=== PATIENT | female | born 1975 | race Caucasian/White ===

== ENCOUNTER → 2016-10-13 | Outpatient (CLI) | payer MEDICARE, OTHER ==
--- NOTE | 2016-10-13 08:49 | MR ---
EXAMINATION TYPE: MR brain wo/w con DATE OF EXAM: 10/13/2016 8:35 AM COMPARISON: Prior MRI brain March 29, 2015 HISTORY: White matter changes per order. Symptoms of headaches, balance issues, and memory loss all p er patient. TECHNIQUE: Multiplanar, multisequence images of the brain and brainstem is performed without and with IV contras t, utilizing 15 mL intravenous MultiHance gadolinium contrast is administered intravenously. Demyeli nating disease protocol with additional Sagittal Flair sequence performed. FINDINGS: T2 Lesions Present : Yes Approximate Number of Lesions: Less than 5, no progression noted. Locations Identified : Some confluent periventricular involvement for example right frontal horn on a xial image 19 Size of Reference Lesion(s): No distinct focal lesions to accurately measure. Previously described tiny focal lesions not well see n on today's study. Small vague lesion right temporal lobe axial image 14 is felt stable for referenc e. Enhancing Lesion(s) Present: No Change from Prior: Stable Diffusion weighted images demonstrate no evidence of a recent infarct or other diffusion abnormality. There is no worrisome extra-axial fluid collection. There is persistent mild diffuse ventricular pr ominence felt stable without significant sulcal effacement. The brain volume is age appropriate. Midline structures demonstrate normal morphology. The craniocervical junction appears within normal limits. Post contrast images demonstrate no abnormal enhancement. The dural venous sinuses appear pa tent. The visualized sinuses are clear and the globes are intact. IMPRESSION: Mild hydrocephalus with nonspecific mild predominantly periventricular somewhat confluen t T2 hyperintense lesions favor product of transependymal flow of CSF, other etiologies not excluded. No new or enhancing lesions are evident.
== END | disposition home or self-care (01) ==
LOC: RADMRIMAIN 07:38
PROVIDERS: ATTEND Psychiatry & Neurology Neurology
DX: G91.9 Hydrocephalus, unspecified (principal)
CPT/HCPCS: 70553; A9577

== ENCOUNTER → 2016-12-10 | Outpatient (CLI) | payer MEDICARE, OTHER ==
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
== END | disposition home or self-care (01) ==
LOC: SLEEP 10:12
PROVIDERS: ATTEND Internal Medicine
DX: G47.33 Obstructive sleep apnea (adult) (pediatric) (principal); E66.3 Overweight; F32.9 Major depressive disorder, single episode, unspecified; F41.9 Anxiety disorder, unspecified; E03.9 Hypothyroidism, unspecified; G40.909 Epilepsy, unspecified, not intractable, without status epilepticus; H40.9 Unspecified glaucoma; K21.9 Gastro-esophageal reflux disease without esophagitis; Z91.040 Latex allergy status; Z98.890 Other specified postprocedural states; Z79.899 Other long term (current) drug therapy

== ENCOUNTER → 2017-04-12 | Outpatient (CLI) | payer MEDICARE ==
--- NOTE | 2017-04-13 08:25 | MM ---
Reason for exam: screening (asymptomatic). Last mammogram was performed 1 year and 4 months ago. History: Patient has history of other cancer at age 38. Family history of breast cancer in paternal aunt at age 40. Physical Findings: A clinical breast exam by your physician is recommended on an annual basis and results should be correlated with mammographic findings. MG Screening Mammo w CAD Bilateral CC and MLO view(s) were taken. Prior study comparison: December 11, 2015, bilateral MG 3d screening mammo w/cad. November 22, 2014, bilateral MG screening mammo w CAD. There are scattered fibroglandular densities. Benign calcifications in the left breast. There is no discrete abnormality. No significant changes when compared with prior studies. ASSESSMENT: Benign, BI-RAD 2 RECOMMENDATION: Routine screening mammogram of both breasts in 1 year.
== END | disposition home or self-care (01) ==
LOC: RADMAMWWP 07:56
PROVIDERS: ATTEND Obstetrics & Gynecology
DX: Z12.31 Encounter for screening mammogram for malignant neoplasm of breast (principal)

== ENCOUNTER → 2017-10-19 | Outpatient (CLI) | payer OTHER, MEDICARE ==
--- NOTE | 2017-10-19 11:07 | MR ---
EXAMINATION TYPE: MR brain wo/w con DATE OF EXAM: 10/19/2017 COMPARISON: Prior brain MRI October 13, 2016. HISTORY: MS progress study. TECHNIQUE: Multiplanar, multisequence images of the brain and brainstem is performed without and with IV contras t, utilizing 7 mL intravenous Gadavist gadolinium contrast is administered intravenously. Demyelinat ing disease protocol with additional Sagittal Flair sequence performed. FINDINGS: T2 Lesions Present : Yes Approximate Number of Lesions: Less than 5 Locations Identified : Periventricular confluent areas Size of Reference Lesion(s): Curvilinear confluent area right frontal horn stable near axial image 18 Enhancing Lesion(s) Present: No Change from Prior: Stable Diffusion weighted images demonstrate no evidence of a recent infarct or other diffusion abnormality. There is no worrisome extra-axial fluid collection. There is ventricular and sulcal prominence cons istent with mild diffuse cerebral atrophy somewhat pronounced for patient's age. Ventricle size is no t significantly changed from prior. Midline structures demonstrate normal morphology. The craniocervical junction appears within normal limits. Post contrast images demonstrate no abnormal enhancement. The dural venous sinuses appear pa tent. The visualized sinuses are clear and the globes are intact. IMPRESSION: Mild diffuse cerebral atrophy versus mild hydrocephalus not significantly changed from pr ior study. Confluent T2 periventricular lesion stable though nonspecific, not typical pattern of demy elinating disease. No new or enhancing lesions are seen.
== END | disposition home or self-care (01) ==
LOC: RADMRIMAIN 09:16
PROVIDERS: ATTEND Psychiatry & Neurology Neurology
DX: G93.89 Other specified disorders of brain (principal); Z91.040 Latex allergy status
CPT/HCPCS: 70553; A9581

== ENCOUNTER → 2017-12-02 | Outpatient (CLI) | payer MEDICARE ==
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
== END | disposition home or self-care (01) ==
LOC: SLEEP 13:05
PROVIDERS: ATTEND Internal Medicine
DX: G47.33 Obstructive sleep apnea (adult) (pediatric) (principal); F32.9 Major depressive disorder, single episode, unspecified; F41.9 Anxiety disorder, unspecified; E03.9 Hypothyroidism, unspecified; K21.9 Gastro-esophageal reflux disease without esophagitis; H40.9 Unspecified glaucoma; Z91.040 Latex allergy status; Z98.890 Other specified postprocedural states; Z79.899 Other long term (current) drug therapy; Z79.1 Long term (current) use of non-steroidal anti-inflammatories (NSAID); Z79.82 Long term (current) use of aspirin; Z86.69 Personal history of other diseases of the nervous system and sense organs; Z99.89 Dependence on other enabling machines and devices

== ENCOUNTER → 2018-01-10 | Outpatient (CLI) | payer MEDICARE ==
[2018-01-10 08:26] LABS: T4, Free (Free Thyroxine) 0.84 ng/dL (0.78-2.19)
== END | disposition home or self-care (01) ==
LOC: LABWHC1 07:19
PROVIDERS: ATTEND Internal Medicine Endocrinology, Diabetes & Metabolism
DX: E03.9 Hypothyroidism, unspecified (principal)
CPT/HCPCS: 36415; 84439; 84443

== ENCOUNTER → 2018-03-11 | Outpatient (CLI) | payer MEDICARE ==
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
== END | disposition home or self-care (01) ==
LOC: RADBDWWP 07:48
PROVIDERS: ATTEND Family Medicine
DX: M85.851 Other specified disorders of bone density and structure, right thigh (principal); E55.9 Vitamin D deficiency, unspecified
CPT/HCPCS: 77080

== ENCOUNTER → 2018-04-07 | Outpatient (CLI) | payer OTHER, MEDICARE ==
--- NOTE | 2018-04-07 12:01 | MR ---
EXAMINATION TYPE: MR lumbar spine wo/w con DATE OF EXAM: 04/07/2018 COMPARISON: Prior MRI lumbar spine December 31, 2015 HISTORY: Low back pain per order, pain for over a year into left thigh and buttocks per patient. TECHNIQUE: Multiplanar, multisequence images of the lumbar spine is performed without and with IV contrast, util izing 7.5 mL intravenous Gadavist FINDINGS: Sagittal images of the lumbar spine show vertebral body heights and alignment to appear sat isfactory. 6 mild disc desiccation L2-L3 and L4-L5 levels is redemonstrated otherwise the interverteb ral discs demonstrate normal heights and hydration. No new suspicious posterior disc herniations are seen on sagittal images. Small posterior disc herniation L1-L2 level is redemonstrated effacing anter ior thecal sac. The conus medullaris is stable in position ending at superior L2 level. No abnormal s ignal is present. No suspicious clumping of lumbosacral nerve roots is noted. The bone marrow signal intensity is within normal limits. No suspicious postcontrast enhancement is seen. No significant spu rring is noted. Axial images show the T12-L1 level to remain within normal limits. Axial images at the L1-L2 level show more prominent moderate broad disc bulge with central disc protr usion effacing anterior thecal sac on axial images 23 and 22, bilateral neural foramina remain patent . Axial images at L2-L3 level show mild broad disc bulge and mild facet degenerative changes bilaterall y. There is minimal effacement anterior thecal sac. Bilateral neural foramina are patent. No signific ant change from prior. Axial images at the L3-L4 level show mild to moderate right greater than left facet arthropathy bilat erally. No disc herniation is seen. Spinal canal is maintained. Bilateral neural foramina are patent. No significant change from prior. Axial images at the L4-L5 level show moderate right greater than left facet degenerative changes liga mentum flavum hypertrophy bilaterally. There is some effacement of the posterior lateral thecal sac. There is persistent mild broad disc bulge with left foraminal disc protrusion component. Increased si gnal in this component consistent with annular tear is redemonstrated. Right-sided neural foramen is patent. Left side is patent as disc herniation is inferior to the foramina. No significant change fro m prior. Axial images at the L5-S1 level redemonstrate mild facet degenerative changes bilaterally. Spinal can al is preserved. Bilateral neural foramina are patent. No suspicious retroperitoneal findings are seen. Paraspinal muscle bulk is maintained. IMPRESSION: Multilevel degenerative changes in lumbar spine as detailed above, findings at L4-L5 leve l felt stable from prior. More prominent disc herniation L1-L2 level is noted on current study.
== END | disposition home or self-care (01) ==
LOC: RADMRIMAIN 09:39
PROVIDERS: ATTEND Psychiatry & Neurology Neurology
DX: M47.817 Spondylosis without myelopathy or radiculopathy, lumbosacral region (principal); M51.26 Other intervertebral disc displacement, lumbar region; Z91.040 Latex allergy status
CPT/HCPCS: 72158; A9581

== ENCOUNTER → 2018-05-23 | Outpatient (CLI) | payer MEDICARE ==
--- NOTE | 2018-05-23 12:02 | MM ---
Reason for exam: screening (asymptomatic). Last mammogram was performed 1 year and 1 month ago. History: Patient has history of other cancer at age 38. Family history of breast cancer in paternal aunt at age 40. Physical Findings: A clinical breast exam by your physician is recommended on an annual basis and results should be correlated with mammographic findings. MG 3D Screening Mammo W/Cad Bilateral CC, MLO, and XCCL view(s) were taken. Prior study comparison: April 12, 2017, bilateral MG screening mammo w CAD. December 11, 2015, bilateral MG 3d screening mammo w/cad. The breast tissue is heterogeneously dense. This may lower the sensitivity of mammography. There are benign appearing round calcifications in the left breast. There is no discrete abnormality. ASSESSMENT: Benign, BI-RAD 2 RECOMMENDATION: Routine screening mammogram of both breasts in 1 year.
== END | disposition home or self-care (01) ==
LOC: RADMAMWWP 08:54
PROVIDERS: ATTEND Family Medicine
DX: Z12.31 Encounter for screening mammogram for malignant neoplasm of breast (principal)
CPT/HCPCS: 77063; 77067

== ENCOUNTER → 2019-01-04 | Outpatient (CLI) | payer MEDICARE ==
[2019-01-04 09:05] LABS: Basophils % (A) 1 %; Eosinophils # (A) 0.1 k/uL (0-0.7); Eosinophils % (A) 2 %; HCT 37.1 % (34.0-46.0); Lymphocytes # (A) 1.9 k/uL (1.0-4.8); Lymphocytes % (A) 43 %; MCHC 32.5 g/dL (31.0-37.0); MCV 95.6 fL (80.0-100.0); Monocytes # (A) 0.3 k/uL (0-1.0); Monocytes % (A) 7 %; Neutrophils % (A) 45 %; Platelet Count 284 k/uL (150-450); RBC 3.88 m/uL (3.80-5.40); RDW 12.8 % (11.5-15.5); WBC 4.4 k/uL (3.8-10.6)
[2019-01-04 15:58] LABS: Albumin 4.1 g/dL (3.80-4.90); Albumin/Globulin Ratio 1.95 (1.60-3.17); Anion Gap 8.9 mmol/L (4.00-12.00); Calcium 9.1 mg/dL (8.7-10.3); Carbon Dioxide 24.1 mmol/L (21.6-31.8); Globulin 2.1 g/dL (1.6-3.3); Potassium 3.9 mmol/L (3.5-5.5); Total Bilirubin 0.2 mg/dL (0.3-1.2); Total Protein 6.2 g/dL (6.2-8.2)
[2019-01-05 16:43] LABS: Carbamazepine (Tegretol) 8.4 ug/mL (4.0-12.0)
== END | disposition home or self-care (01) ==
LOC: LABWHC1 07:53
PROVIDERS: ATTEND Nurse Practitioner Acute Care
DX: E55.9 Vitamin D deficiency, unspecified (principal); R56.9 Unspecified convulsions; Z51.81 Encounter for therapeutic drug level monitoring
CPT/HCPCS: 36415; 80053; 80156; 80164; 80177; 82306; 85025

== ENCOUNTER → 2019-01-19 | Outpatient (CLI) | payer MEDICARE ==
--- NOTE | 2019-01-19 11:28 | US ---
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 On thyroid meds. GLAND SIZE: Right Lobe: 4.0 x 1.7 x 1.8 cm Overall Parenchyma: homogenous Left Lobe: 4.3 x 1.6 x 1.3 cm Overall Parenchyma: homogeneous Isthmus Thickness: 0.3 cm NODULES RIGHT: # of nodules measured on right: 0 LEFT: # of nodules measured on left: 0 ISTHMUS: # of nodules measured in the isthmus: 0 Bilateral neck scanned, no evidence of lymphadenopathy. IMPRESSION: Homogeneous thyroid gland without focal nodularity as seen on the prior of 2012.
== END | disposition home or self-care (01) ==
LOC: RADUSWWP 10:05
PROVIDERS: ATTEND Internal Medicine Endocrinology, Diabetes & Metabolism
DX: E04.2 Nontoxic multinodular goiter (principal)
CPT/HCPCS: 76536

== ENCOUNTER → 2019-02-16 | Outpatient (CLI) | payer OTHER, MEDICARE ==
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
== END | disposition home or self-care (01) ==
LOC: SLEEP 10:11
PROVIDERS: ATTEND Internal Medicine
DX: G47.33 Obstructive sleep apnea (adult) (pediatric) (principal); F32.9 Major depressive disorder, single episode, unspecified; F41.9 Anxiety disorder, unspecified; R56.9 Unspecified convulsions; E03.9 Hypothyroidism, unspecified; K21.9 Gastro-esophageal reflux disease without esophagitis; H40.9 Unspecified glaucoma; Z98.890 Other specified postprocedural states; Z99.89 Dependence on other enabling machines and devices; Z91.040 Latex allergy status; Z79.899 Other long term (current) drug therapy

== ENCOUNTER → 2019-05-26 | Outpatient (CLI) | payer MEDICARE ==
--- NOTE | 2019-05-30 08:12 | MM ---
Reason for exam: screening (asymptomatic). Last mammogram was performed 1 year ago. History: Patient is postmenopausal and has history of other cancer at age 38. Family history of breast cancer in paternal aunt at age 40. Physical Findings: A clinical breast exam by your physician is recommended on an annual basis and results should be correlated with mammographic findings. MG 3D Screening Mammo W/Cad Bilateral CC and MLO view(s) were taken. Prior study comparison: May 23, 2018, bilateral MG 3d screening mammo w/cad. April 12, 2017, bilateral MG screening mammo w CAD. There are scattered fibroglandular densities. No significant changes when compared with prior studies. ASSESSMENT: Negative, BI-RAD 1 RECOMMENDATION: Routine screening mammogram of both breasts in 1 year.
== END | disposition home or self-care (01) ==
LOC: RADMAMWWP 06:52
PROVIDERS: ATTEND Obstetrics & Gynecology
DX: Z12.31 Encounter for screening mammogram for malignant neoplasm of breast (principal)
CPT/HCPCS: 77063; 77067

== ENCOUNTER → 2019-07-13 | Outpatient (CLI) | payer MEDICARE ==
--- NOTE | 2019-07-13 12:02 | XR ---
EXAMINATION TYPE: XR chest 2V DATE OF EXAM: 07/13/2019 COMPARISON: 07/14/2018 TECHNIQUE: PA and lateral views submitted. HISTORY: Melanoma FINDINGS: The lungs are clear and there is no pneumothorax, pleural effusion, or focal pneumonia. No overt fa ilure. IMPRESSION: 1. No acute process.
== END | disposition home or self-care (01) ==
LOC: RADXRMAIN 11:41
PROVIDERS: ATTEND Internal Medicine Hematology & Oncology
DX: C43.59 Malignant melanoma of other part of trunk (principal); R51 Headache; G40.319 Generalized idiopathic epilepsy and epileptic syndromes, intractable, without status epilepticus; E07.9 Disorder of thyroid, unspecified
CPT/HCPCS: 71046

== ENCOUNTER → 2020-05-15 | Outpatient (CLI) | payer MEDICARE | END | disposition home or self-care (01) | LOC: LABWHC1 08:38 | PROVIDERS: ATTEND Internal Medicine Endocrinology, Diabetes & Metabolism | DX: E03.9 Hypothyroidism, unspecified (principal) | CPT/HCPCS: 36415; 84439; 84443 ==

== ENCOUNTER → 2020-08-01 | Outpatient (CLI) | payer MEDICARE ==
--- NOTE | 2020-08-02 09:51 | MM ---
Reason for exam: screening (asymptomatic). Last mammogram was performed 1 year and 2 months ago. History: Patient is postmenopausal and has history of other cancer at age 38. Family history of breast cancer in paternal aunt at age 40. Physical Findings: A clinical breast exam by your physician is recommended on an annual basis and results should be correlated with mammographic findings. MG 3D Screening Mammo W/Cad Bilateral CC and MLO view(s) were taken. Prior study comparison: May 26, 2019, bilateral MG 3d screening mammo w/cad. May 23, 2018, bilateral MG 3d screening mammo w/cad. The breast tissue is heterogeneously dense. This may lower the sensitivity of mammography. There are benign appearing round calcifications bilaterally. There is no discrete abnormality. ASSESSMENT: Benign, BI-RAD 2 RECOMMENDATION: Routine screening mammogram of both breasts in 1 year.
== END | disposition home or self-care (01) ==
LOC: RADMAMWWP 11:00
PROVIDERS: ATTEND Family Medicine
DX: Z12.31 Encounter for screening mammogram for malignant neoplasm of breast (principal)
CPT/HCPCS: 77063; 77067

== ENCOUNTER → 2020-09-12 | Outpatient (CLI) | payer OTHER ==
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
== END | disposition home or self-care (01) ==
LOC: SLEEP 09:51
PROVIDERS: ATTEND Internal Medicine
DX: G47.33 Obstructive sleep apnea (adult) (pediatric) (principal); H54.62 Unqualified visual loss, left eye, normal vision right eye; E03.9 Hypothyroidism, unspecified; H40.9 Unspecified glaucoma; K21.9 Gastro-esophageal reflux disease without esophagitis; Z86.59 Personal history of other mental and behavioral disorders; Z91.040 Latex allergy status; Z98.890 Other specified postprocedural states; Z79.82 Long term (current) use of aspirin; Z79.899 Other long term (current) drug therapy; Z79.890 Hormone replacement therapy; Z99.89 Dependence on other enabling machines and devices

== ENCOUNTER → 2021-06-17 | Outpatient (CLI) | payer MEDICARE ==
--- NOTE | 2021-06-17 13:39 | US ---
EXAMINATION TYPE: US thyroid st tissue head/neck DATE OF EXAM: 06/17/2021 COMPARISON: NONE CLINICAL HISTORY: 46-year-old female E03.8 HYPOTHYROIDISM. TECHNIQUE: Multiple sonographic images of the thyroid gland are obtained. FINDINGS: GLAND SIZE: Right Lobe: 4.1 x 2.1 x 1.8 cm Overall Parenchyma: homogenous Left Lobe: 4.5 x 1.7 x 1.4 cm Overall Parenchyma: homogeneous Isthmus Thickness: 0.4 cm NODULES RIGHT: # of nodules measured on right: 0 LEFT: # of nodules measured on left: 0 ISTHMUS: # of nodules measured in the isthmus: 0 Bilateral neck scanned, no evidence of lymphadenopathy. IMPRESSION: No discrete nodules. Gland measurements within the normal range.
== END | disposition home or self-care (01) ==
LOC: RADUSWWP 09:42
PROVIDERS: ATTEND Internal Medicine Endocrinology, Diabetes & Metabolism
DX: E03.9 Hypothyroidism, unspecified (principal)
CPT/HCPCS: 76536

== ENCOUNTER → 2021-08-28 | Outpatient (CLI) | payer MEDICARE ==
--- NOTE | 2021-08-28 10:30 | XR ---
EXAMINATION TYPE: XR chest 2V DATE OF EXAM: 08/28/2021 COMPARISON: NONE TECHNIQUE: PA and lateral views submitted. HISTORY: Melanoma FINDINGS: The lungs are clear and there is no pneumothorax, pleural effusion, or focal pneumonia. Heart size normal. No overt failure. Chronic appearing deformity of the left clavicle. IMPRESSION: 1. No acute process.
== END | disposition home or self-care (01) ==
LOC: RADXRMAIN 10:02
PROVIDERS: ATTEND Internal Medicine Hematology & Oncology
DX: C43.59 Malignant melanoma of other part of trunk (principal); G40.319 Generalized idiopathic epilepsy and epileptic syndromes, intractable, without status epilepticus; E07.9 Disorder of thyroid, unspecified; E78.5 Hyperlipidemia, unspecified
CPT/HCPCS: 71046

== ENCOUNTER → 2021-10-23 | Outpatient (CLI) | payer OTHER ==
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
== END ==
LOC: SLEEP 10:23
PROVIDERS: ATTEND Internal Medicine
DX: G47.33 Obstructive sleep apnea (adult) (pediatric) (principal); F32.A Depression, unspecified; F41.9 Anxiety disorder, unspecified; G40.909 Epilepsy, unspecified, not intractable, without status epilepticus; E03.9 Hypothyroidism, unspecified; K21.9 Gastro-esophageal reflux disease without esophagitis; H40.9 Unspecified glaucoma; H54.8 Legal blindness, as defined in USA; Z98.890 Other specified postprocedural states; Z87.828 Personal history of other (healed) physical injury and trauma; Z91.040 Latex allergy status; Z91.030 Bee allergy status

== ENCOUNTER → 2021-11-03 | Outpatient (CLI) | payer MEDICARE ==
[2021-11-03 15:00] LABS: T4, Free (Free Thyroxine) 1.1 ng/dL (0.800-1.800)
== END | disposition home or self-care (01) ==
LOC: LABWHC1 09:53
PROVIDERS: ATTEND Internal Medicine Endocrinology, Diabetes & Metabolism
DX: E03.8 Other specified hypothyroidism (principal)
CPT/HCPCS: 36415; 84439; 84443

== ENCOUNTER → 2021-12-19 | Outpatient (CLI) | payer MEDICARE ==
--- NOTE | 2021-12-22 11:24 | MM ---
Reason for exam: screening (asymptomatic). Last mammogram was performed 1 year and 5 months ago. History: Patient is postmenopausal and has history of other cancer at age 38. Family history of breast cancer in paternal aunt at age 40. Physical Findings: A clinical breast exam by your physician is recommended on an annual basis and results should be correlated with mammographic findings. MG 3D Screening Mammo W/Cad Bilateral CC and MLO view(s) were taken. Prior study comparison: August 01, 2020, bilateral MG 3d screening mammo w/cad. May 26, 2019, bilateral MG 3d screening mammo w/cad. The breast tissue is heterogeneously dense. This may lower the sensitivity of mammography. No significant changes when compared with prior studies. ASSESSMENT: Benign, BI-RAD 2 RECOMMENDATION: Routine screening mammogram of both breasts in 1 year.
== END | disposition home or self-care (01) ==
LOC: RADMAMWWP 14:31
PROVIDERS: ATTEND Family Medicine
DX: Z12.31 Encounter for screening mammogram for malignant neoplasm of breast (principal); Z78.0 Asymptomatic menopausal state; Z80.3 Family history of malignant neoplasm of breast
CPT/HCPCS: 77063; 77067

== ENCOUNTER → 2022-06-16 | Outpatient (CLI) | payer MEDICARE ==
--- NOTE | 2022-06-16 10:43 | CT ---
EXAMINATION TYPE: CT shoulder RT wo con DATE OF EXAM: 06/16/2022 COMPARISON: Plain film not submitted. HISTORY: UNSP DISP FX OF SURGICAL NECK CT DLP: 293.00 mGycm Automated exposure control for dose reduction was used. Helical imaging through the shoulder. Three-d imensional reconstructions. FINDINGS: Minimally displaced comminuted intra-articular humeral head fracture is present. No evident dislocati on. Some probable atelectatic changes present within the right lung. IMPRESSION: PROXIMAL RIGHT HUMERAL FRACTURE.
== END | disposition home or self-care (01) ==
LOC: RADCTMAIN 08:21
PROVIDERS: ATTEND Orthopaedic Surgery
DX: S42.211A Unspecified displaced fracture of surgical neck of right humerus, initial encounter for closed fracture (principal)

== ENCOUNTER → 2022-06-30 | Outpatient (CLI) | payer MEDICARE | END | disposition home or self-care (01) | LOC: LABWHC1 10:52 | PROVIDERS: ATTEND Internal Medicine Endocrinology, Diabetes & Metabolism | DX: E03.8 Other specified hypothyroidism (principal) | CPT/HCPCS: 36415; 84436; 84443 ==

== ENCOUNTER → 2022-09-04 | Outpatient (CLI) | payer MEDICARE ==
--- NOTE | 2022-09-04 12:17 | XR ---
EXAMINATION TYPE: XR chest 2V DATE OF EXAM: 09/04/2022 12:04 PM COMPARISON: Chest radiographs from 08/28/2021, CT right shoulder 06/16/2022 TECHNIQUE: XR chest 2V Frontal and lateral views of the chest. CLINICAL INDICATION:Female, 47 years old with history of C43.59, G40.319, E07.9, E78.5; FINDINGS: Lungs/Pleura: There is no evidence of pleural effusion, focal consolidation, or pneumothorax. Right perihilar linear scarring and/or atelectasis. Similar elevation of the right hemidiaphragm. Pulmonary vascularity: Unremarkable. Heart/mediastinum: Cardiomediastinal silhouette is unremarkable. Musculoskeletal: No acute osseous pathology. Remote right proximal humerus fracture. Chronic deformit y of the left clavicle. IMPRESSION: Right perihilar linear scarring and/or atelectasis. Otherwise no acute process.
--- NOTE | 2022-09-04 13:26 | MR ---
EXAMINATION TYPE: MR brain wo/w con DATE OF EXAM: 09/04/2022 COMPARISON: MR brain 10/19/2018, 10/13/2016, 03/29/2015 HISTORY: Memory loss, fall, hx melanoma. TECHNIQUE: Multiplanar, multisequence images of the brain and brainstem is performed without and with IV contras t, utilizing 6.5 mL intravenous Gadavist . FINDINGS: Diffusion weighted images demonstrate no evidence of a recent infarct or other diffusion ab normality. There is no extra-axial fluid collection. Mild stable cerebral atrophy. Unchanged T2/FLAI R hyperintense periventricular confluent white matter changes. Most prominent along the right frontal horn. The ventricular system and cisternal spaces is stable and prominent in size and appearance lik yael related to cerebral atrophy. The brain volume is age appropriate. Midline structures demonstrate normal morphology. The craniocervical junction appears within normal limits. Post contrast images demonstrate no abnormal enhancement. The dural venous sinuses appear pa tent. The globes are intact. Remote injury to the left maxillary sinus. IMPRESSION: 1. No evidence of acute ischemia. No abnormal enhancement identified. 2. Confluent T2 periventricular white matter changes likely related to chronic microangiopathy.
== END | disposition home or self-care (01) ==
LOC: RADMRIMAIN 11:36
PROVIDERS: ATTEND Internal Medicine Hematology & Oncology
DX: C43.59 Malignant melanoma of other part of trunk (principal); R90.82 White matter disease, unspecified; J98.4 Other disorders of lung; E07.9 Disorder of thyroid, unspecified; E78.5 Hyperlipidemia, unspecified; G40.319 Generalized idiopathic epilepsy and epileptic syndromes, intractable, without status epilepticus; Z91.81 History of falling
CPT/HCPCS: 71046; 70553; A9585

== ENCOUNTER → 2022-11-24 | Outpatient (CLI) | payer MEDICARE ==
--- NOTE | 2022-11-24 11:53 | MR ---
EXAMINATION TYPE: MR shoulder RT wo con DATE OF EXAM: 11/24/2022 COMPARISON: Outside right shoulder x-ray 2 weeks ago and older studies. HISTORY: RT SHOULDER PAIN WITH MOVEMENT TECHNIQUE: Multiplanar, multisequence imaging of the right shoulder is performed without contrast. FINDINGS: Rotator Cuff: Increased signal in the supraspinatus and infraspinatus tendons with more prominent sig nal and partial tearing of the articular surface of the infraspinatus tendon sagittal image 7 and cor onal image 17. . Subscapularis tendon is intact. Rotator cuff muscle bulk is preserved. Acromioclavicular Joint: Mild capsular hypertrophy. No significant spurring. No significant narrowing . Type II downsloping acromion. Glenohumeral Joint: There is narrowing seen. No significant spurring. Small effusion. Labrum: The labrum appears grossly intact given limitation of non-arthrogram study. Biceps Tendon: The long head of biceps is in normal location within bicipital groove. Some thickening and subtle increased signal intracapsular portion Bone marrow signal: Marked irregularity humeral head and proximal metaphysis with heterogeneous dimin ished T1 and increased T2 signal consistent with healing/healed comminuted fracture. Fracture extends to the superior medial humeral head along with the greater tuberosity. Some residual impaction along with minimal medial displacement of distal fracture fragment is redemonstrated. Findings correlate w ith CT June 16, 2022. Other: No additional significant abnormality is appreciated. IMPRESSION: 1. Late subacute or chronic comminuted fracture through surgical neck of right proximal humerus as de tailed above. Alignment fairly stable from prior CT. 2. There is glenohumeral joint narrowing. There is tendinosis of the onset of biceps tendon near labr al anchor. There is tendinosis of supraspinatus and infraspinatus tendons and partial tearing of the infraspinatus tendon at the articular surface.
== END | disposition home or self-care (01) ==
LOC: RADMRIMAIN 11:03
PROVIDERS: ATTEND Orthopaedic Surgery
DX: S42.211A Unspecified displaced fracture of surgical neck of right humerus, initial encounter for closed fracture (principal); M67.813 Other specified disorders of tendon, right shoulder; M75.111 Incomplete rotator cuff tear or rupture of right shoulder, not specified as traumatic

== ENCOUNTER → 2022-12-31 | Outpatient (CLI) | payer MEDICARE ==
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
== END ==
LOC: SLEEP 10:15
PROVIDERS: ATTEND Internal Medicine
DX: G47.33 Obstructive sleep apnea (adult) (pediatric) (principal); E03.9 Hypothyroidism, unspecified; F32.A Depression, unspecified; F41.9 Anxiety disorder, unspecified; H40.9 Unspecified glaucoma; H54.62 Unqualified visual loss, left eye, normal vision right eye; K21.9 Gastro-esophageal reflux disease without esophagitis; Z79.899 Other long term (current) drug therapy; Z98.890 Other specified postprocedural states; Z99.89 Dependence on other enabling machines and devices; Z79.890 Hormone replacement therapy; Z79.82 Long term (current) use of aspirin; Z91.040 Latex allergy status; Z91.02 Food additives allergy status
CPT/HCPCS: 99212

== ENCOUNTER → 2023-01-06 | Outpatient (CLI) | payer MEDICARE ==
[~2023-01-06] MED LIST: REGADENOSON 0.4 MG/5 ML SYRINGE IV PRN
--- NOTE | 2023-01-06 12:49 | NM ---
EXAMINATION TYPE: NM stress lexiscan cardiolite DATE OF EXAM: 01/06/2023 COMPARISON: NONE CLINICAL INDICATION: Female, 47 years old with history of R94.31, I67.9, G40.909, R41.3; TECHNIQUE: After the intravenous administration of 10.3 mCi Tc 99m Sestamibi - Cardiolite resting SP ECT images acquired 45 minutes post injection. The patient received 0.4mg Lexiscan, 24.6 mCi Tc 99m Sestamibi - Stress images obtained [address] injection FINDINGS: Review of stress and rest SPECT images demonstrates no distinct perfusion abnormality. Gated analysi s shows normal wall motion with an estimated left ventricular ejection fraction of 66 %. IMPRESSION: No scintigraphic evidence for reversible ischemia.
--- NOTE | 2023-01-06 13:15 | CA ---
Lexiscan Nuclear Stress Test Report Name: Ivory Louis Exam Date: 01/06/2023 11:11 Exam Location: [place] Stress Ht (in): 64 Wt (lb): 165 BSA: 1.80 Ordering Phys: Donna Davis MD Referring Phys: Ryan,, Technologist: SAUNDRA,, Age: 47 Gender: F : 1975 Procedure CPT: Indications: R94.31, I67.9, G40.909, R41.3 ICD-10 Codes: Patient History: ASCAD Medications: Meds past 24 hrs: Pretest Chest Pain: STRESS TEST Lexiscan Protocol Exercise Duration (min:sec): 02:[address] Depressions (mm): Angina Score: Mehta Score: Resting HR (bpm): 55 Peak HR (bpm): 86 Resting BP (mmHg): 141 / 79 Peak BP (mmHg): 129 / 78 MPHR: 171 Target HR: 145 % MPHR: 50 METS: 1.0 Total Dose: Peak Dose: Atropine: Double Product: 71258 BP Response: Stress Termination: Infusion complete Stress Symptoms: No chest pain or symptoms Stress Summary: ECG ANALYSIS Resting ECG: Stress ECG: CONCLUSIONS At baseline EKG showed normal sinus rhythm, normal axis, minimal 0.[address] depressions in the inferolateral leads. Patient recieved IV infusion of Lexiscan 0.4mg and at peak infusion EKG showed no significant change from baseline. Conclusions: 1. Nonspecific stress EKG portion second baseline EKG abnormalities 2. Nuclear imaging to be reported separately. Dr. Santos Harman DO (Electronically Signed) Final Date: 06 Jan 2023 13:14
== END | disposition home or self-care (01) ==
LOC: RADNMMAIN 08:44
PROVIDERS: ATTEND Family Medicine
DX: R94.31 Abnormal electrocardiogram [ECG] [EKG] (principal); I67.9 Cerebrovascular disease, unspecified; G40.909 Epilepsy, unspecified, not intractable, without status epilepticus; R41.3 Other amnesia
CPT/HCPCS: 93017; 78452; A9500; J2785

== ENCOUNTER 2023-01-20 07:28 | Day surgery (SDC) | payer MEDICARE ==
[2023-01-14 15:08] VITALS: BMI 30.9
--- NOTE | 2023-01-19 15:41 | HP ---
HISTORY AND PHYSICAL DATE OF SURGERY: 01/20/2023. HISTORY OF PRESENT ILLNESS: Ivory Louis is a 47-year-old patient seen with progressive right shoulder pain. We discussed options for treatment. She had post right shoulder arthroscopy. Consent regarding the procedure was obtained. PAST MEDICAL HISTORY: Hypothyroidism, hyperlipidemia, gastroesophageal reflux disease. PAST SURGICAL HISTORY: Noncontributory. MEDICATIONS: Atorvastatin, levothyroxine, Lexapro, meloxicam, multivitamin, pantoprazole. ALLERGIES: Latex. SOCIAL HISTORY: She denies tobacco use. PHYSICAL EVALUATION OF THE RIGHT SHOULDER: Flexion is 100 degrees, abduction is 80 degrees, external rotation is 50 degrees with some pain and weakness. Tenderness along the anterolateral acromion and rotator cuff insertion site. Impingement positive at 90 degrees. Cross-body adduction sign is positive. Drop-arm sign is positive. Distal neurovascular exam is intact. RADIOGRAPHS: Right shoulder radiographs revealed a previous well-healed humeral head fracture. MRI of right shoulder revealed a partial rotator cuff tear along with a previous well- healed humeral head fracture. IMPRESSION: 1. Right shoulder impingement with partial rotator cuff tear. 2. History of right shoulder humeral head fracture. 3. Hypothyroidism. 4. Hyperlipidemia. PLAN: Right shoulder arthroscopy with subacromial decompression, arthroscopic rotator cuff repair and debridement. MMODL / IJN: [id number] /
[2023-01-20] MEDS ORDERED: LACTATED RINGERS 1,000 ML IV SCH (07:47)
[2023-01-20] MEDS ORDERED: HYDROmorphone 0.5 MG/0.5 ML SYRINGE IVP PRN (07:47)
[2023-01-20] MEDS ORDERED: ONDANSETRON 4 MG/2 ML VIAL IVP ONE (07:47)
[2023-01-20] MEDS ORDERED: DEXAMETHASONE SOD PHOSPHATE 4 MG/ML 1 ML VIAL IV ONE (07:47)
[2023-01-20 08:19] VITALS: TEMP 97.2
[2023-01-20] MEDS ORDERED: MIDAZOLAM 2 MG/2 ML VIAL IVP ONE (08:53)
[2023-01-20] MEDS ORDERED: GLYCOPYRROLATE 0.2 MG/ML 2 ML VIAL IVP ONE (09:09)
[2023-01-20] MEDS ORDERED: SODIUM CHLORIDE 0.9% (PF) 10 ML VIAL ONE (09:24)
[2023-01-20] MEDS ORDERED: ROPIVACAINE 5 MG/ML 30 ML VIAL ONE (09:24)
[2023-01-20] MEDS ORDERED: ETOMIDATE 2 MG/ML 10 ML VIAL ONE (09:24)
[2023-01-20] MEDS ORDERED: SUCCINYLCHOLINE CHLORIDE 200 MG/10 ML VIAL IV ONE (09:24)
[2023-01-20] MEDS ORDERED: fentaNYL (PF) 50 MCG/ML 2 ML AMP ONE (09:24)
[2023-01-20] MEDS ORDERED: LIDOCAINE 2% INJ 20 MG/ML (2 ML VIAL) ONE (09:24)
[2023-01-20] MEDS ORDERED: DEXAMETHASONE SOD PHOSPHATE 4 MG/ML 1 ML VIAL ONE (09:24)
--- NOTE | 2023-01-20 10:54 | P.OP ---
Date of Procedure: 01/20/23 Preoperative Diagnosis: Right shoulder impingement Postoperative Diagnosis: 1. Right shoulder rotator cuff tear 2. Right shoulder impingement 3. Right shoulder acromioclavicular joint osteoarthritis 4. Right shoulder partial long head biceps tendon tear Procedure(s) Performed: 1. Right shoulder arthroscopic rotator cuff repair 2. Right shoulder arthroscopic subacromial decompression 3. Right shoulder arthroscopic Alena procedure 4. Right shoulder arthroscopic biceps tenotomy Implants: 1Arthrex 5.5 swivel lock anchor Anesthesia: GETA, regional (Interscalene block) Surgeon: Montrell Lazaro Director Of Hospitality #1: Abel Johansen Estimated Blood Loss (ml): 10 Pathology: none sent Condition: stable Disposition: PACU Indications for Procedure: 47-year-old patient seen with progressive right shoulder pain. After having treatment options discussed, she elected to proceed with arthroscopy. Operative Findings: See description of procedure Description of Procedure: Patient underwent an interscalene block by department of anesthesia. The patient was then taken to the operative suite. The patient underwent a general anesthetic by the department of anesthesia. The patient was placed into a lateral position and secured. There was appropriate padding of the bony prominence. Right shoulder was then prepped and draped in normal sterile orthopedic fashion. We placed the extremity in 10 pounds of longitudinal traction. A posterior incision was now made for a posterior working portal site. The trocar and cannula were inserted into the glenohumeral joint. Arthroscopy was initiated. Spinal needle was now inserted anteriorly, to ascertain the anterior working portal site. An incision was now made in that area, a trocar was inserted followed by a probe. There was some partial tearing and hyperemia involving the long head biceps tendon. There was some superficial fraying of the superior labrum. There was no significant chondromalacia. The remaining la mitzi appeared stable. I performed an arthroscopic biceps tenotomy. I debrided out some of the fraying of the labrum. The residual labrum was probed and was found to be stable. Utilizing the posterior working portal site, the trocar and cannula were inserted into the subacromial space. Arthroscopy initiated. I made an incision 2 fingerbreadths lateral to the acromion. I introduced my trocar followed by my ArthroCare ablator. I now began ablating thick subacromial bursal tissue, which exposed the undersurface of the anterior acromion. There was diminished subacromial space. There was a very prominent anterior acromion. A motorized bur was introduced and a subacromial decompression was performed. I also excised some osteophytes off the inferior aspect of the distal clavicle. The AC joint was visualized and noted to be fairly arthritic. The motorized bur was introduced in the anterior portal site and a Alena procedure was performed without difficulty, decompressing the AC joint nicely. I turned my attention to the rotator cuff. There was some significant partial tearing along the posterior aspect of the distal supraspinatus. Upon probing the area was a full-thickness perforation present. I debrided the margins getting down to stable tendon tissue. The defect/tear measuring approximately 1.5 cm and was freely mobile over the footprint. I abraded the footprint with a motorized bur. I passed 2 everted mattress sutures through good bites of rotator cuff tendon with the assistance of Rober TORRES. I punched the hole the footprint area for insertion of an anchor. We passed all 4 limbs of suture through the eyelet of a Arthrex 5.5 swivel lock anchor. I placed the eyelet into our pre-punch hole. I held it in position while Robre TORRES tensioned all 4 limbs of suture and deployed the anchor was good fixation noted. All residual suture limbs were now clipped. We had good compression of the tendon along the entire footprint. Instruments now removed from the portal sites. All portal sites were approximated with nylon suture. Sterile dressings were applied followed by a shoulder sling. Abel TORRES assisted in all aspects this case. The patient was awakened, transferred to a bed, and taken to recovery in stable condition.
[2023-01-20 11:03] VITALS: RESP 16
[2023-01-20 11:45] VITALS: PULSE 63
[2023-01-20 12:31] VITALS: BP 111/69
--- NOTE | 2023-01-20 13:22 | P.ANPRN ---
Procedure Note - Anesthesia - Nerve Block Performed Right Interscalene Single Time Out Performed: Yes Date of Procedure: 01/20/23 Procedure Start Time: 08:52 Procedure Stop Time: 08:56 Location of Patient: PreOp Indication: Acute Post-Operative Pain, Requested by Surgeon Sedation Type: Sedate with meaningful contact maintained Preparation: Sterile Prep Position: Supine Needle Types: Pajunk Needle Gauge: 21 Ultrasound used to visualize needle placement: Yes Ultrasound used to observe medication spread: Yes Blood Aspirated: No Pain Paresthesia on Injection Noted: No Resistance on Injection: Normal Image Stored and Saved: Yes Events: Uneventful and Well Tolerated (ropi .5% 20cc plus dexamethasone 4mg)
== END 2023-01-20 12:51 | disposition home or self-care (01) ==
LOC: OR 07:28
PROVIDERS: ATTEND Orthopaedic Surgery
DX: M75.121 Complete rotator cuff tear or rupture of right shoulder, not specified as traumatic (principal); M19.011 Primary osteoarthritis, right shoulder; S46.111A Strain of muscle, fascia and tendon of long head of biceps, right arm, initial encounter; M75.41 Impingement syndrome of right shoulder; G89.18 Other acute postprocedural pain; X58.XXXA Exposure to other specified factors, initial encounter; E03.9 Hypothyroidism, unspecified; E78.5 Hyperlipidemia, unspecified; K21.9 Gastro-esophageal reflux disease without esophagitis; G47.33 Obstructive sleep apnea (adult) (pediatric); Z86.73 Personal history of transient ischemic attack (TIA), and cerebral infarction without residual deficits; Z79.899 Other long term (current) drug therapy; Z79.890 Hormone replacement therapy; Z91.040 Latex allergy status; Z87.81 Personal history of (healed) traumatic fracture
CPT/HCPCS: 64415; 29827; 29824; 29826; C1894; C1713; J2250; J0330; J1100; J2405; J0690; J3010; J2795; J2001

== ENCOUNTER → 2023-01-29 | Outpatient (CLI) | payer MEDICARE ==
[2023-01-29 16:52] LABS: T4, Free (Free Thyroxine) 1.12 ng/dL (0.800-1.800)
== END | disposition home or self-care (01) ==
LOC: LABWHC1 09:37
PROVIDERS: ATTEND Internal Medicine Endocrinology, Diabetes & Metabolism
DX: E03.8 Other specified hypothyroidism (principal)
CPT/HCPCS: 36415; 84439; 84443

== ENCOUNTER → 2023-02-24 | Outpatient (CLI) | payer MEDICARE, OTHER ==
[2023-02-24 16:50] LABS: ALT 19 U/L (8-44); AST 16 U/L (13-35); Albumin 4.5 d/dL (3.8-4.9); Albumin/Globulin Ratio 1.45 Ratio (1.60-3.17); Alkaline Phosphatase 68 U/L (41-126); Calcium 9.9 mg/dL (8.7-10.3); Carbon Dioxide 25.9 mmol/L (21.6-31.8); Chloride 103 mmol/L (96-109); Globulin 3.1 d/dL (1.6-3.3); Glucose 100 mg/dL (70-110); Potassium 4.4 mmol/L (3.5-5.5); Sodium 140 mmol/L (135-145); T4, Free (Free Thyroxine) 1.04 ng/dL (0.80-1.80); Total Bilirubin <0.2 mg/dL (0.3-1.2); Total Protein 7.6 d/dL (6.2-8.2)
[2023-02-24 17:38] LABS: Basophils # (A) 0.02 X 10*3/uL (0.00-0.10); Basophils % (A) 0.5 %; Eosinophils # (A) 0.07 X 10*3/uL (0.04-0.35); Eosinophils % (A) 1.6 %; HGB 13.7 d/dL (12.0-15.0); Lymphocytes # (A) 2.02 X 10*3/uL (0.90-5.00); Lymphocytes % (A) 45.8 %; MCH 31.5 pg (27.0-32.0); MCHC 31.9 d/dL (32.0-37.0); MCV 98.9 FL (80.0-97.0); Monocytes # (A) 0.38 X 10*3/uL (0.20-1.00); Monocytes % (A) 8.6 %; NRBC Per 100 WBC 0 X 10*3/uL (0.00-0.01); Neutrophils # (A) 1.89 X 10*3/uL (1.80-7.70); Neutrophils % (A) 42.8 %; Platelet Count 276 X 10*3/uL (140-440); RBC 4.35 X 10*6/uL (4.10-5.20); RDW 12.1 % (11.5-14.5); WBC 4.41 X 10*3/uL (4.50-10.00)
== END | disposition home or self-care (01) ==
LOC: LABWHC1 09:12
PROVIDERS: ATTEND Nurse Practitioner Acute Care
DX: E55.9 Vitamin D deficiency, unspecified (principal); E53.9 Vitamin B deficiency, unspecified; G40.822 Epileptic spasms, not intractable, without status epilepticus; G43.909 Migraine, unspecified, not intractable, without status migrainosus; R41.3 Other amnesia; R42 Dizziness and giddiness; R53.1 Weakness; R90.82 White matter disease, unspecified
CPT/HCPCS: 36415; 80053; 82306; 82607; 84207; 84439; 84443; 84480; 85025

== ENCOUNTER → 2023-06-23 | Outpatient (CLI) | payer MEDICARE ==
--- NOTE | 2023-06-24 09:27 | MM ---
Reason for Exam: Screening (asymptomatic). Last mammogram was performed 1 year(s) and 6 month(s) ago. Patient History: Menarche at age 11. First Full-Term at age 16. Postmenopausal. Other cancer, age 38. Paternal aunt had breast cancer, age 40. Risk Values: Zenaida 5 year model risk: 0.7%. NCI Lifetime model risk: 6.5%. Prior Study Comparison: 05/26/2019 Bilateral Screening Mammogram, [facility]. 08/01/2020 Bilateral Screening Mammogram, [facility]. 12/19/2021 Bilateral Screening Mammogram, [facility]. Tissue Density: There are scattered fibroglandular densities. Findings: Analyzed By CAD. There is no suspicious group of microcalcifications or new suspicious mass. Overall Assessment: Negative, BI-RAD 1 Management: Screening Mammogram of both breasts in [address] [facility] will attempt to contact patient to return for supplemental views and ultrasound if indicated. Patient should continue monthly self-breast exams. A clinical breast exam by your physician is recommended on an annual basis. This exam should not preclude additional follow-up of suspicious palpable abnormalities. Note on Zenaida scores and lifetime risk: 1. A Zenaida score greater than 3% is considered moderate risk. If this is the case, consider specialist referral to assess eligibility for a risk reducing agent. 2. If overall lifetime risk for the development of breast cancer is 20% or higher, the patient may qualify for future screening with alternating mammogram and breast MRI. Electronically signed and approved by: Leodan Felix DO
== END | disposition home or self-care (01) ==
LOC: RADMAMWWP 11:16
PROVIDERS: ATTEND Obstetrics & Gynecology
DX: Z12.31 Encounter for screening mammogram for malignant neoplasm of breast (principal); Z78.0 Asymptomatic menopausal state; Z80.3 Family history of malignant neoplasm of breast
CPT/HCPCS: 77063; 77067

== ENCOUNTER → 2023-07-15 | Outpatient (CLI) | payer MEDICARE ==
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
== END ==
LOC: SLEEP 10:55
PROVIDERS: ATTEND Internal Medicine
DX: G47.33 Obstructive sleep apnea (adult) (pediatric) (principal); E03.9 Hypothyroidism, unspecified; F32.A Depression, unspecified; F41.9 Anxiety disorder, unspecified; H40.9 Unspecified glaucoma; H54.62 Unqualified visual loss, left eye, normal vision right eye; K21.9 Gastro-esophageal reflux disease without esophagitis; Z79.890 Hormone replacement therapy; Z86.69 Personal history of other diseases of the nervous system and sense organs; Z79.899 Other long term (current) drug therapy; Z91.040 Latex allergy status; Z79.82 Long term (current) use of aspirin
CPT/HCPCS: 99212

== ENCOUNTER → 2023-12-06 | Outpatient (CLI) | payer MEDICARE ==
[2023-12-06 16:35] LABS: T4, Free (Free Thyroxine) 1.06 ng/dL (0.80-1.80)
== END | disposition home or self-care (01) ==
LOC: LABWHC1 09:19
PROVIDERS: ATTEND Internal Medicine Endocrinology, Diabetes & Metabolism
DX: E03.8 Other specified hypothyroidism (principal)
CPT/HCPCS: 36415; 84439; 84443

== ENCOUNTER → 2024-06-26 | Outpatient (CLI) | payer MEDICARE ==
--- NOTE | 2024-06-27 10:05 | MM ---
Reason for Exam: Screening (asymptomatic). Last screening mammogram was performed 12 month(s) ago. Patient History: Menarche at age 11. First Full-Term at age 16. Postmenopausal. Other cancer, age 38. Paternal aunt had breast cancer, age 40. Risk Values: Zenaida 5 year model risk: 0.7%. NCI Lifetime model risk: 6.4%. Prior Study Comparison: 08/01/2020 Bilateral Screening Mammogram, [facility]. 12/19/2021 Bilateral Screening Mammogram, [facility]. 06/23/2023 Bilateral MG 3D screening mammo w/cad, [facility]. Tissue Density: There are scattered areas of fibroglandular density. Findings: Analyzed By CAD. Right breast: There is no suspicious group of microcalcifications or new suspicious mass. Left breast: There is no suspicious group of microcalcifications or new suspicious mass. Overall Assessment: Negative, BI-RAD 1 Management: Screening Mammogram of both breasts in [address] [facility] will attempt to contact patient to return for supplemental views and ultrasound if indicated. Patient should continue monthly self-breast exams. A clinical breast exam by your physician is recommended on an annual basis. This exam should not preclude additional follow-up of suspicious palpable abnormalities. Note on Zenaida scores and lifetime risk: 1. A Zenaida score greater than 3% is considered moderate risk. If this is the case, consider specialist referral to assess eligibility for a risk reducing agent. 2. If overall lifetime risk for the development of breast cancer is 20% or higher, the patient may qualify for future screening with alternating mammogram and breast MRI. [facility], , 06/27/2024 10:03 AM. Electronically signed and approved by: Leodan Felix DO
== END | disposition home or self-care (01) ==
LOC: RADMAMWWP 08:06
PROVIDERS: ATTEND Family Medicine
DX: Z12.31 Encounter for screening mammogram for malignant neoplasm of breast
CPT/HCPCS: 77063; 77067

== ENCOUNTER → 2024-07-05 | Outpatient (CLI) | payer MEDICARE ==
[2024-07-05 10:32] VITALS: BP 116/71; PULSE 70; RESP 14; TEMP 97.9
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
== END ==
LOC: 3 N SLEEP 10:16
PROVIDERS: ATTEND Internal Medicine
DX: G47.33 Obstructive sleep apnea (adult) (pediatric) (principal); F41.9 Anxiety disorder, unspecified; F32.A Depression, unspecified; E03.9 Hypothyroidism, unspecified; H40.9 Unspecified glaucoma; K21.9 Gastro-esophageal reflux disease without esophagitis; H54.7 Unspecified visual loss; Z86.69 Personal history of other diseases of the nervous system and sense organs; Z91.040 Latex allergy status; Z87.09 Personal history of other diseases of the respiratory system; Z98.890 Other specified postprocedural states; Z87.828 Personal history of other (healed) physical injury and trauma; Z99.89 Dependence on other enabling machines and devices; Z79.890 Hormone replacement therapy
CPT/HCPCS: 99212

== ENCOUNTER 2024-07-20 05:46 | Day surgery (SDC) | payer MEDICARE ==
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
[2024-07-20] MEDS ORDERED: MIDAZOLAM 2 MG/2 ML VIAL IV PRN (06:07)
[2024-07-20] MEDS ORDERED: LIDOCAINE 1% (10MG/ML) FOR IV START INTRADERMA PRN (06:07)
[2024-07-20] MEDS ORDERED: HYDROmorphone 0.5 MG/0.5 ML SYRINGE IVP PRN ×2 (06:07→09:02)
[2024-07-20] MEDS ORDERED: fentaNYL (PF) 50 MCG/ML 2 ML AMP IVP PRN (06:07)
[2024-07-20] MEDS: IV FLUID CONTINUATION 1,000 ML IV ONE (06:39)
[2024-07-20] MEDS: LACTATED RINGERS 1,000 ML IV SCH (06:46)
[2024-07-20] MEDS: ONDANSETRON 4 MG/2 ML VIAL IVP ONE (06:46)
[2024-07-20] MEDS: DEXAMETHASONE SOD PHOSPHATE 4 MG/ML 1 ML VIAL IV ONE (06:46)
[2024-07-20] MEDS ORDERED: ROCURONIUM 10 MG/ML (5 ML VIAL) IV ONE (07:29)
[2024-07-20] MEDS ORDERED: PROPOFOL 10 MG/ML 20 ML VIAL IV ONE (07:29)
[2024-07-20] MEDS ORDERED: fentaNYL (PF) 50 MCG/ML 2 ML AMP ONE (07:29)
[2024-07-20] MEDS ORDERED: ePHEDrine 50 MG/ML 1 ML VIAL ONE (07:29)
[2024-07-20] MEDS ORDERED: LIDOCAINE 1% INJ 10MG/ML (20 ML MDV) ONE (07:29)
[2024-07-20] MEDS ORDERED: SUGAMMADEX SODIUM 200 MG/2 ML SDV IV ONE (07:29)
[2024-07-20] MEDS ORDERED: ALBUTEROL HFA INHALER INHALATION ONE (07:29)
[2024-07-20] MEDS ORDERED: MIDAZOLAM 2 MG/2 ML VIAL ONE (07:29)
[2024-07-20] MEDS: GENTAMICIN 100 MG in SODIUM CHLORIDE 0.9% 100 ML IVPB PRN (07:51)
[2024-07-20] MEDS: LIDOCAINE 1%-EPI 1:100,000 20 ML VIAL SQ ONE (08:02)
[2024-07-20] MEDS: BACITRACIN OINT 1 EACH PACKET TOPICAL ONE (08:03)
[2024-07-20] MEDS: GENTAMICIN 80 MG in SODIUM CHLORIDE 0.9% 500 ML 500 ML IRRIGATION ONE (08:04)
--- NOTE | 2024-07-20 08:59 | P.OP ---
Date of Procedure: 07/20/24 Preoperative Diagnosis: Mixed urinary incontinence Postoperative Diagnosis: Same Procedure(s) Performed: Obtryx sling Anesthesia: LUIS Surgeon: Davi Ledesma Estimated Blood Loss (ml): 30 IV fluids (ml): 500 Pathology: none sent Condition: stable Disposition: PACU Indications for Procedure: The patient is a 49-year-old white female with a 1 year history of mixed urinary incontinence, which requires the use of 3-4 pull-ups daily. The urge component is predominant. On examination, there is evidence of mild urethral hypermobility. Stress incontinence is demonstrated when the patient coughs in the supine position. A Edwardo test is positive. Urodynamic testing showed no evidence of bladder outflow obstruction, and no detrusor instability. She has elected to undergo a TOT sling and comes for this reason. Operative Findings: TOT sling placed without complication. Description of Procedure: The patient was taken to the operating room and placed in the dorsal lithotomy position, with her legs supported in Rodrigo stirrups. The perineum, lower abdomen, and vagina were prepped and draped sterilely. A 16-Yoruba Lugo catheter was placed. 0.5% Marcaine with epinephrine was injected submucosally within the anterior vaginal wall, over the urethra. The scalpel was then used to make an anterior midline vaginal incision over the urethra. Metzenbaum scissors were used to dissect laterally within the submucosal plane, to the inferior pubic ramus. The scalpel was used to make bilateral groin incisions at the level of the clitoris. Subcutaneous tissues were spread with a hemostat. Each of the helical needles were passed through the respective groin incision, and turned such that the needle tip wrapped around the pubis. The needle tips were guided digitally into the vaginal incision. Cystoscopy was performed. The 30 lens was used to introduce the 19-Yoruba Storz cystoscopic sheath through the urethra and into the bladder under direct vision. The urethra and bladder were unre markable. There was no evidence of perforation. Both ureteral orifices were of normal anatomic location and configuration. No tumors or foreign bodies were seen. The cystoscope was removed, and the Lugo catheter was replaced into the bladder. The Obtryx graft, which had been previously soaked in antibiotic solution, was secured to the needle tips in the standard fashion. The needles were then withdrawn, and the position of the graft was adjusted such that it overlie the mid urethra, as desired. With a hemostat placed between the graft and the urethra to prevent tension of the graft over the urethra, the plastic sheath was removed from the ends of the graft. The ends of the graft were cut beneath the skin incisions, and these incisions were closed using 4-0 Vicryl suture in a subcuticular fashion. Hemostasis within the vaginal incision was excellent, and the vaginal incision was closed using 2-0 Vicryl suture in a running fashion. All sponge and needle counts were correct. Steri-Strips were applied over the groin incisions. The Lugo catheter was left to gravity drainage. The patient tolerated the procedure well was taken to the recovery room in stable condition.
[2024-07-20] MEDS: DEXTROSE 5%-0.45% NACL 1,000 ML IV SCH (10:51)
[2024-07-20] MEDS: KETOROLAC 15 MG/ML 1 ML VIAL IVP PRN (11:26)
[2024-07-20] MEDS: KETOROLAC 0.5% OPHTH DROPS 5 ML BTL RIGHT EYE SCH (14:27)
[2024-07-20] MEDS: HYDROcodone/APAP 5-325MG 1 EACH TAB PO PRN (16:03)
[2024-07-20] MEDS: PANTOPRAZOLE 40 MG TABLET PO SCH (16:47)
[2024-07-20] MEDS: CALCIUM CARBONATE 500 MG CHEWABLE PO SCH (16:48)
[2024-07-20] MEDS: OLANZapine 10 MG TAB PO SCH (20:40)
[2024-07-20] MEDS: levETIRAcetam 500 MG TAB PO SCH (20:41)
[2024-07-20] MEDS: ATORVASTATIN 10 MG TAB PO SCH (20:42)
[2024-07-20] MEDS: TOPIRAMATE 25 MG TAB PO SCH (20:42)
[2024-07-20] MEDS: MEMANTINE 10 MG TAB PO SCH (20:42)
[2024-07-20] MEDS: DIVALPROEX ER 500 MG TAB.ER.24H PO SCH (20:43)
[2024-07-20] MEDS: carBAMazepine 300 MG CPMP.12HR PO SCH (20:43)
[2024-07-20] MEDS: BRIMONIDINE TARTRATE 0.2% DROPS 5 ML BTL RIGHT EYE SCH (20:44)
[2024-07-20] MEDS: DORZOLAMIDE-TIMOLOL 2.23%/0.68 10ML BTL RIGHT EYE SCH (20:45)
[2024-07-21 00:55] VITALS: BP 115/70; PULSE 80; RESP 16
[2024-07-21 06:18] VITALS: TEMP 97.4
[2024-07-21] MEDS: carBAMazepine 400 MG TAB.ER.12H PO SCH (08:32)
[2024-07-21] MEDS: ESCITALOPRAM 20 MG TAB PO SCH (08:33)
[2024-07-21] MEDS: LEVOTHYROXINE 75 MCG TAB PO SCH (08:34)
[2024-07-21] MEDS: OLANZapine 10 MG TAB PO SCH (08:35)
[2024-07-21] MEDS: LATANOPROST 0.005% OPHTH DROPS 2.5 ML BTL RIGHT EYE SCH (08:43)
[2024-07-21] MEDS: REXULTI (Brexpiprazole) 2 MG Tablet PO SCH (08:56)
--- NOTE | 2024-07-21 12:02 | P.DS ---
Providers Attending physician: Davi Ledesma Primary care physician: [facility] Course: This is a 49year-old female underwent a transobturator sling by Dr. Ledesma Please see op note dated 07/20 for surgery details. She was admitted to the hospital postoperatively. Lugo catheter was removed on postop day #1, following catheter removal she was able to void without any difficulties. She was discharged home. At time of discharge she was tolerating a diet, ambulating, and pain was controlled Plan - Discharge Summary Discharge Rx Participant: No New Discharge Prescriptions: New Cephalexin [Keflex] 500 mg PO Q8HR #9 cap Ketorolac [Toradol] 10 mg PO Q6HR PRN #15 tab PRN Reason: Pain No Action Divalproex ER [Depakote ER] 1,000 mg PO BID@729,2029 LORazepam [Ativan] 0.5 mg PO BID PRN PRN Reason: ANXIETY,STRESS Calcium Carbonate [Tums] 1,000 mg PO DAILY@1700 Atorvastatin Calcium [Lipitor] 10 mg PO HS@2029 Cholecalciferol [Vitamin D3] 50 mcg PO DAILY Topiramate [Topamax] 50 mg PO BID OLANZapine [ZyPREXA] 10 mg PO DAILY@729 OLANZapine [ZyPREXA] 20 mg PO HS Pantoprazole Sodium [Protonix] 40 mg PO DAILY@170 Levothyroxine Sodium [Synthroid] 75 mcg PO DAILY@729 Escitalopram Oxalate [Lexapro] 20 mg PO DAILY@729 carBAMazepine [Carbatrol] 400 mg PO QAM@729 carBAMazepine [Carbatrol] 600 mg PO HS@2029 levETIRAcetam [Keppra] 1,500 mg PO BID@729,2029 Aspirin 325 mg PO DAILY Memantine HCl/Donepezil HCl [Namzaric 28 mg-10 mg Capsule] 1 cap PO HS Pediatric Multivit No.203/Iron [Flintstones with Iron Tab Chew] 18 mg PO DAILY Latanoprost [Latanoprost 0.005%] 1 drop RIGHT EYE QAM Ketorolac 0.5% Ophth Soln [Acular 0.5%] 1 drops RIGHT EYE QID Brimonine Tartate 0.2% 1 drop RIGHT EYE BID Meloxicam [Mobic] 15 mg PO HS Dorzolamide-Timol 2.23%/0.68% [Cosopt] 1 drop RIGHT EYE BID Brexpiprazole [Rexulti] 2 mg PO DAILY Discharge Medication List Divalproex ER [Depakote ER] 1,000 mg PO BID@05/09/15 [History] Atorvastatin Calcium [Lipitor] 10 mg PO HS@202905/10/15 [History] Calcium Carbonate [Tums] 1,000 mg PO DAILY@169905/10/15 [History] Cholecalciferol [Vitamin D3] 50 mcg PO DAILY 05/10/15 [History] Escitalopram Oxalate [Lexapro] 20 mg PO DAILY@72905/10/15 [History] LORazepam [Ativan] 0.5 mg PO BID PRN 05/10/15 [History] Levothyroxine Sodium [Synthroid] 75 mcg PO DAILY@72905/10/15 [History] OLANZapine [ZyPREXA] 10 mg PO DAILY@72905/10/15 [History] OLANZapine [ZyPREXA] 20 mg PO HS 05/10/15 [History] Pantoprazole Sodium [Protonix] 40 mg PO DAILY@169905/10/15 [History] Topiramate [Topamax] 50 mg PO BID 05/10/15 [History] carBAMazepine [Carbatrol] 400 mg PO QAM@72905/10/15 [History] carBAMazepine [Carbatrol] 600 mg PO HS@202901/23/16 [History] levETIRAcetam [Keppra] 1,500 mg PO BID@01/23/16 [History] Aspirin 325 mg PO DAILY 01/14/23 [History] Latanoprost [Latanoprost 0.005%] 1 drop RIGHT EYE QAM 01/14/23 [History] Meloxicam [Mobic] 15 mg PO HS 01/14/23 [History] Memantine HCl/Donepezil HCl [Namzaric 28 mg-10 mg Capsule] 1 cap PO HS 01/14/23 [History] Pediatric Multivit No.203/Iron [Flintstones with Iron Tab Chew] 18 mg PO DAILY 01/14/23 [History] Brexpiprazole [Rexulti] 2 mg PO DAILY 07/18/24 [History] Brimonine Tartate 0.2% 1 drop RIGHT EYE BID 07/18/24 [History] Dorzolamide-Timol 2.23%/0.68% [Cosopt] 1 drop RIGHT EYE BID 07/18/24 [History] Ketorolac 0.5% Ophth Soln [Acular 0.5%] 1 drops RIGHT EYE QID 07/18/24 [History] Cephalexin [Keflex] 500 mg PO Q8HR #9 cap 07/21/24 [Rx] Ketorolac [Toradol] 10 mg PO Q6HR PRN #15 tab 07/21/24 [Rx]
== END 2024-07-21 12:40 | disposition home or self-care (01) ==
LOC: OR 05:46 → 4FBP 08:37 → OR 07-21 12:40
PROVIDERS: ATTEND Urology
DX: N39.46 Mixed incontinence (principal); K21.9 Gastro-esophageal reflux disease without esophagitis; G40.909 Epilepsy, unspecified, not intractable, without status epilepticus; E07.9 Disorder of thyroid, unspecified; Z86.73 Personal history of transient ischemic attack (TIA), and cerebral infarction without residual deficits; Z85.820 Personal history of malignant melanoma of skin; Z79.82 Long term (current) use of aspirin; Z79.890 Hormone replacement therapy; Z79.899 Other long term (current) drug therapy; Z87.891 Personal history of nicotine dependence; Z91.040 Latex allergy status; Z98.51 Tubal ligation status
CPT/HCPCS: 81025; 57288; C1771; J1580 ×2; J1100; J0690; J2405; J1885 ×2

== ENCOUNTER → 2024-11-28 | Outpatient (CLI) | payer MEDICARE | END | disposition home or self-care (01) | LOC: LABWHC1 08:12 | PROVIDERS: ATTEND Internal Medicine Endocrinology, Diabetes & Metabolism | DX: E03.8 Other specified hypothyroidism (principal) | CPT/HCPCS: 36415; 84443 ==

== ENCOUNTER → 2024-12-14 | Outpatient (CLI) | payer MEDICARE ==
--- NOTE | 2024-12-14 16:22 | US ---
EXAMINATION TYPE: US thyroid st tissue head/neck DATE OF EXAM: 12/14/2024 COMPARISON: 06/17/21 CLINICAL INDICATION: Female, 49 years old with history of E03.8 OTHER SPECIFIED HYPOTHYROIDISM; Hypot hyroidism. On thyroid medication TECHNIQUE: Grayscale and color Doppler imaging of the thyroid gland. FINDINGS: GLAND SIZE: Right Lobe: 4.4 x 1.9 x 1.4 cm Overall Parenchyma: homogeneous Left Lobe: 4.3 x 1.6 x 1.2 cm Overall Parenchyma: homogeneous Isthmus Thickness: 0.2 cm NODULES RIGHT: # of nodules measured on right: 0 LEFT: # of nodules measured on left: 0 ISTHMUS: # of nodules measured in the isthmus: 0 Bilateral neck scanned, no evidence of lymphadenopathy. IMPRESSION: Normal-sized thyroid gland. No discrete nodules. [facility], Workstation: [id number], 12/14/2024 4:19 PM
== END | disposition home or self-care (01) ==
LOC: RADUSWWP 12:48
PROVIDERS: ATTEND Internal Medicine Endocrinology, Diabetes & Metabolism
DX: E03.8 Other specified hypothyroidism (principal); Z79.890 Hormone replacement therapy
CPT/HCPCS: 76536